=== PATIENT | male | born 1965 | race Caucasian/White ===

== ENCOUNTER 2016-12-20 21:05 | Emergency (ER) | payer MEDICARE ==
[~2016-12-20] VITALS: Ht 185.4 cm; Wt 105.0 kg
[~2016-12-20 21:05] MED LIST: ASPI1TAB69 PO; ATEN25TA PO; ATOR80TA45 PO; DIOV40TA PO; FENO145T2 PO; HUMALOG SQ; ISOS20TA PO; LEVE500 PO; LEVEMIR SQ; NOVONP2 SQ; NOVORP2 SQ; PRAS10TA PO; SERT-129 PO; SIMV20TA PO; TRAZ100 PO; TRAZ100T4 PO
[2016-12-20 21:10] VITALS: BP 152/86; PULSE 93; RESP 18; TEMP 98.3; O2SAT 98
--- NOTE | 2016-12-20 22:04 | RADRPT ---
EXAM DATE/TIME: 12/20/2016 21:49 [facility] COMPARISON: No previous studies available for comparison. INDICATIONS : Hurt right shoulder picking up dog. MEDICAL HISTORY : None. SURGICAL HISTORY : None. ENCOUNTER: Initial ACUITY: 1 day PAIN SCORE: 8/10 LOCATION: Right shoulder FINDINGS: 4 views of the right shoulder demonstrate no fracture or dislocation. The acromioclavicular joint is intact but demonstrates mild osteoarthritis change. The visualized soft tissues demonstrate no abnorm ality. Visualized portions of the right lung are clear. No displaced rib fracture is seen. Patient is post m edian sternotomy. CONCLUSION: No acute right shoulder abnormality is identified. Johnny Fleming MD on December 20, 2016 at 22:02 Board Certified Radiologist. This report was verified electronically.
[2016-12-20] MEDS ORDERED: ASPI-516 CHEW (22:08)
[2016-12-20] MEDS ORDERED: TRAZ100T10 PO (22:08)
--- NOTE | 2016-12-20 22:18 | RADRPT ---
EXAM DATE/TIME: 12/20/2016 21:55 [facility] COMPARISON: No previous studies available for comparison. INDICATIONS : When picking up dog, heard pop in right arm. MEDICAL HISTORY : None. SURGICAL HISTORY : None. ENCOUNTER: Initial ACUITY: 1 day PAIN SCORE: 0/10 LOCATION: Right elbow FINDINGS: Four views of the right elbow demonstrate no fracture or dislocation. No joint effusion is visualized . No soft tissue abnormality or radiopaque foreign body is identified. CONCLUSION: No acute abnormality is identified. Johnny Fleming MD on December 20, 2016 at 22:16 Board Certified Radiologist. This report was verified electronically.
[2016-12-20] MEDS ORDERED: PERC5TAB12 PO (22:39)
--- NOTE | 2016-12-20 22:41 | PD ---
HPI Chief Complaint: Musculoskeletal Complaint Time Seen by Provider: 22:41 Travel History International Travel<30 days: No Contact w/Intl Traveler<30days: No Traveled to known affect area: No History of Present Illness HPI 51-year-old male presents to the emergency department for complaint of right elbow injury just prior to arrival to the emergency department. Occurred while walking a large dog. Patient states that he was walking his sister's dog which was very large on a leash when another dog attacked him while he was trying to pull his sister's dog away he felt a pain in his elbow and felt a popping sensation. States since this time is significant pain in the right upper extremity. Patient has taken no medications. Patient has not noticed any swelling or deformity. Patient's had no paresthesias of the extremity. Patient rates his pain as severe. Patient is taking a blood thinning agents. CAD in multiple coronary stents and diabetes. Patient denies any previous injury to his right upper extremity. PFSH Past Medical History Narrative Medical CAD diabetes hypertension dyslipidemia coronary stents cardiac catheterization occasional alcohol use nursing notes reviewed Anxiety: No Depression: Yes Heart Rhythm Problems: No Cancer: No Cardiac Catheterization: Yes Cardiovascular Problems: Yes ([place], [place]) High Cholesterol: Yes Chest Pain: Yes Congestive Heart Failure: No Diabetes: Yes (TYPE I) Patient Takes Glucophage: No Diminished Hearing: Yes ([place] LEFT EAR) Endocrine: Yes Genitourinary: No Hypertension: Yes Immune Disorder: No Implanted Vascular Access Dvce: No Musculoskeletal: No Neurologic: No Psychiatric: Yes Reproductive: No Respiratory: No Myocardial Infarction: Yes Thyroid Disease: No ?: Not Past Surgical History Abdominal Surgery: No Arteriovenous Shunt: No Cardiac Surgery: Yes (cabg in dec 2015) Coronary Artery Bypass Graft: Yes Coronary Stent: Yes Ear Surgery: No Endocrine Surgery: No Eye Surgery: No Genitourinary Surgery: No Gynecologic Surgery: No Insulin Pump: No Joint Replacement: No Oral Surgery: No Pacemaker: No Thoracic Surgery: No Tympanostomy Tube: Yes Other Surgery: Yes Social History Alcohol Use: Yes (RARE) Tobacco Use: No (QUIT 2014) Substance Use: No Allergies-Medications (Allergen,Severity, Reaction): Coded Allergies: No Known Allergies (Unverified , 06/25/16) Reported Meds & Prescriptions Reported Meds & Active Scripts Active Percocet (Oxycodone-Acetaminophen) 5-325 mg Tab 1 Tab PO Q6H PRN Levemir Inj (Insulin Detemir) 1,000 unit/ 10 ML Vial 15 Units SQ BID Do not mix with any other Insulin. Humalog Inj (Insulin Human Lispro) 1,000 Unit/10 Ml Vial 1-9 Units SQ ACHS Max dose at bedtime:( )units; sugars< 70,(0)units; sugars 150-199,(1)unit; sugars 200-249,(3)units; sugars 250-299,(5)units; sugars 300-349,(7)units; sugars more than 349,(9)units. Fenofibrate 145 Mg Tab 145 Mg PO DAILY Atorvastatin (Atorvastatin Calcium) 80 Mg Tab 80 Mg PO HS Atenolol 25 Mg Tab 25 Mg PO DAILY Effient (Prasugrel) 10 Mg Tab 10 Mg PO DAILY Isosorbide Mononitrate 20 Mg Tab 30 Mg PO DAILY Take 2 doses 7 hours apart. Diovan (Valsartan) 40 Mg Tab 40 Mg PO DAILY Reported Trazodone (Trazodone HCl) 100 Mg Tablet 100 Mg PO HS Aspirin 81 Mg Chew 81 Mg CHEW DAILY Review of Systems Except as stated in HPI: all other systems reviewed are Neg General / Constitutional: No: Fever Eyes: No: Visual changes HENT: No: Headaches Cardiovascular: No: Chest Pain or Discomfort Respiratory: No: Shortness of Breath Gastrointestinal: No: Abdominal Pain Genitourinary: No: Flank Pain Musculoskeletal: Positive: Pain (right upper extremity), No: Limited ROM, Weakness, Cramping, Edema Skin: No Rash Neurologic: No: Weakness Psychiatric: No: Anxiety Hematologic/Lymphatic: No: Lymph Node Enlargement Physical Exam Narrative GENERAL: Well-developed well-nourished male in no acute distress no respiratory distress SKIN: Warm and dry. HEAD: Normocephalic. EYES: No scleral icterus. No injection or drainage. NECK: Supple, trachea midline. No JVD or lymphadenopathy. CARDIOVASCULAR: Regular rate and rhythm without murmurs, gallops, or rubs. RESPIRATORY: Breath sounds equal bilaterally. No accessory muscle use. GASTROINTESTINAL: Abdomen soft, non-tender, nondistended. MUSCULOSKELETAL: No cyanosis, or edema. Attention right upper extremity no deformity no soft tissue swelling no redness no edema no induration no increased warmth no fluctuance no effusion no coolness or pallor the limb digits demonstrate brisk capillary refill with palpable or radial pulses. Full range of motion shoulder abduction and abduction and internal/external rotation extension and flexion, elbow intact pronation supination and flexion extension, wrist flexion extension radial and ulnar deviation as well as intact rotation digits intact flexion extension and abduction and abduction. Thumb apposition intact. BACK: Nontender without obvious deformity. No CVA tenderness. Data Data Last Documented VS Vital Signs Date Time Temp Pulse Resp B/P (MAP) Pulse Ox O2 Delivery O2 Flow Rate FiO2 12/20/16 23:02 12/20/16 21:10 98.3 93 18 98 Orders Orders Shoulder, Complete (>2vws) (12/20/16 ) Elbow, Complete (4 Vws) (12/20/16 ) Support Splint (12/20/16 22:42) Ice/Cold Pack (12/20/16 22:42) Acetaminophen (Tylenol) (12/20/16 22:45) Ed Discharge Order (12/20/16 22:43) Sling Cradle Arm (12/20/16 ) MDM Medical Decision Making Medical Screen Exam Complete: Yes Emergency Medical Condition: Yes Medical Record Reviewed: Yes Interpretation(s) Last Impressions Shoulder X-Ray 12/20/16 0000 Signed Impressions: Service Date/Time: Tuesday, December 20, 2016 21:49 - CONCLUSION: No acute right shoulder abnormality is identified. Johnny Fleming MD Elbow X-Ray 12/20/16 0000 Signed Impressions: Service Date/Time: Tuesday, December 20, 2016 21:55 - CONCLUSION: No acute abnormality is identified. Johnny Fleming MD Differential Diagnosis Contusion sprain strain internal derangement rotator cuff tear before meals separation clavicle fracture humerus fracture elbow sprain with medial or lateral epicondylitis; no compartment syndrome Narrative Course Imaging of the elbow and shoulder reveal no acute bony injury limb is neurovascularly tendon intact without soft tissue swelling or deformity; patient given sling and acetaminophen in the emergency department. Otis ice pack applied. Patient is encouraged to follow-up with primary care provider and orthopedist as needed. Diagnosis Primary Impression: Sprain of elbow, right Qualified Codes: S53.401A - Unspecified sprain of right elbow, initial encounter Referrals: Primary Care Physician 2 days Patient Instructions: General Instructions Additional Instructions: Take pain medication as prescribed as needed for pain greater than 5/10 intensity otherwise use acetaminophen/Tylenol per package directions Apply ice intermittently to the area of soft tissue pain and discomfort for the first 12-24 hours Use sling for support Return to the emergency department for any concerns or change in condition Follow-up with primary care provider call office on Thursday to schedule follow- up appointment Med/Other Pt SpecificInfo: Prescription(s) given Scripts Oxycodone-Acetaminophen (Percocet) 5-325 mg Tab 1 TAB PO Q6H Y for PAIN, #7 TAB 0 Refills Prov: Brooke Maldonado MD 12/20/16 Disposition: 01 DISCHARGE HOME Condition: Stable Brooke Maldonado MD Dec 20, 2016 22:41
[2016-12-20] MEDS ORDERED: ACETAMINOPHEN 325 MG TAB PO ONE (22:45)
== END 2016-12-20 23:07 | disposition home or self-care (01) ==
LOC: PHEFT 21:05 → MERGE 21:05 → PHEFT 23:07
DX: S53.401A Unspecified sprain of right elbow, initial encounter (principal); E10.9 Type 1 diabetes mellitus without complications; I10 Essential (primary) hypertension; E78.00 Pure hypercholesterolemia, unspecified; H91.92 Unspecified hearing loss, left ear; I25.2 Old myocardial infarction; X50.0XXA Overexertion from strenuous movement or load, initial encounter; Y93.K1 Activity, walking an animal; Z79.01 Long term (current) use of anticoagulants; Z79.4 Long term (current) use of insulin; Z86.59 Personal history of other mental and behavioral disorders; Z86.79 Personal history of other diseases of the circulatory system
CPT/HCPCS: 73030; 73080; 99284